=== PATIENT | female | born 1955 | race Caucasian/White ===

== ENCOUNTER 2017-12-31 08:02 | Inpatient (IN) | payer OTHER ==
--- NOTE | 2017-12-31 08:17 | ED PDOC ---
Arrival/HPI - General Chief Complaint: Chest Pain Time Seen by Provider: 12/31/17 08:17 Historian: Patient, Family - History of Present Illness Narrative History of Present Illness (Text): 12/31/17 08:15 pt p/w + constant chest pain since 2am, pt states pain is at most 5-6/10, substernal/radiating to left neck; + lightheadedness/dizziness, + mild sob, no diaphoresis, no fever/chills, no palpitations, no abd pain, + mild nausea, no vomiting, no urinary/bowel changes, no fall/trauma/travel; no sick contact; pt was noted by son to have passed out at ~ 6-630am; pt arrived to ED for further eval/exam pt's without other complaints. PCP: DR Davis pt stopped taking her choles med Time/Duration: Prior to Arrival Symptom Onset: Sudden Symptom Course: Unchanged Quality: Tightness, Cramping Severity Level: 6 Activities at Onset: Rest Context: Home Past Medical History - Provider Review Nursing Documentation Reviewed: Yes - Travel History Have you recently traveled outside [place] w/in the past 3 mons?: No - Past History Past History: No Previous - Infectious Disease Hx of Infectious Diseases: None - Reproductive Menopause: Yes Currently : No Family/Social History - Physician Review Nursing Documentation Reviewed: Yes Family/Social History: No Known Family HX Smoking Status: Never Smoked Hx Alcohol Use: No Hx Substance Use: No Hx Substance Use Treatment: No Allergies/Home Meds Allergies/Adverse Reactions: Allergies No Known Allergies Allergy (Verified 12/31/17 14:16) Home Medications: Home Meds Medication Instructions Recorded Confirmed Bisoprolol [Zebeta] 5 mg PO DAILY 12/31/17 12/31/17 Glimepiride [Amaryl] 1 mg PO DAILY 12/31/17 12/31/17 Rosuvastatin Calcium [Crestor] 20 mg PO DAILY 12/31/17 12/31/17 Review of Systems - Review of Systems Constitutional: Normal Eyes: Normal ENT: Normal Respiratory: SOB Cardiovascular: Chest Pain, Syncope. absent: Palpitations Gastrointestinal: Nausea. absent: Vomiting Genitourinary Female: Normal Musculoskeletal: Normal Skin: Normal Neurological: Dizziness. absent: Headache Endocrine: Normal Hemo/Lymphatic: Normal Psychiatric: Normal Physical Exam Vital Signs Reviewed: Yes Vital Signs Temp Pulse Pulse Resp BP Pulse Ox 12/31/17 09:21 97.9 F 54 L 19 94/58 L 97 12/31/17 08:34 71 18 139/74 97 12/31/17 08:18 71 12/31/17 08:17 98.1 F 71 18 160/67 H 97 Temperature: Afebrile Blood Pressure: Hypertensive Pulse: Regular Respiratory Rate: Normal Appearance: Positive for: Well-Appearing, Uncomfortable, Other (resting in bed, alert/awake, GCS = 15, oriented x 3, mild distress due to pain, cooperative) Pain Distress: Mild Mental Status: Positive for: Alert and Oriented X 3 - Systems Exam Head: Present: Atraumatic, Normocephalic Pupils: Present: PERRL, Other (no nystagmus, no photophobia, sclera anicteric) Extroacular Muscles: Present: EOMI Conjunctiva: Present: Normal Ears: Present: Normal Mouth: Present: Moist Mucous Membranes, Normal Teeth Pharnyx: Present: Normal Nose (External): Present: Atraumatic Nose (Internal): Present: Normal Inspection Neck: Present: Normal Range of Motion, Trachea Midline, Other (no midline tenderness, no nuchal rigidity, no meningeal signs, no step off). No: MIDLINE TENDERNESS Respiratory/Chest: Present: Clear to Auscultation, Good Air Exchange, Other ( CTA b/l, no w/r/r, no accessory muscle use noted, no tachypenia). No: Respiratory Distress, Accessory Muscle Use, Wheezes, Rales, Rhonchi Cardiovascular: Present: Regular Rate and Rhythm, Normal S1, S2. No: Murmurs Abdomen: Present: Normal Bowel Sounds, Other (well nourished female, no focal tenderness, no spencer's sign, no mcburney's point tenderness, no masses/rebound/ guarding/rigidity; no pulsatile masses noted). No: Tenderness, Distention, Peritoneal Signs, Rebound, Guarding Back: Present: Normal Inspection. No: Midline Tenderness Upper Extremity: Present: Normal Inspection, Normal ROM, NORMAL PULSES, Neurovascularly Intact, Capillary Refill < 2s. No: Edema Lower Extremity: Present: Normal Inspection, NORMAL PULSES, Normal ROM, Neurovascularly Intact, Capillary Refill < 2 s. No: Edema, CALF TENDERNESS, Zachary's Sign Neurological: Present: GCS=15, CN II-XII Intact, Speech Normal Skin: Present: Warm, Dry, Normal Color. No: Rashes Psychiatric: Present: Alert, Oriented x 3, Normal Insight, Normal Concentration Medical Decision Making ED Course and Treatment: Impression: chest pain, r/o acs i have consider all the differential diagnosis regarding pt's chief medical complaints/clinical findings, including but are not limited to: chest pain, concern for AMI A/P: chest pain - labs - iv - acs eval - xray - observe - supportive care 12/31/17 08:15 Code Heart was called at 08:15. Awaiting Dr. Zhao 12/31/17 08:[address] hess, who recommends medication for anti- coagulation and agrees to see patient at bedside. 12/31/17 08:25 Case discussed with hospitalist, Dr. Birmingham, at 08:25, who is aware of plan and agrees to see patient at bedside. 12/31/17 08:26 Hospitalist team is currently at bedside and made aware of patient's medical complaints. They agree with admission. 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 pt is currently resting at bedside + mild chest pain remains pt/family are made aware of pt's medical results agrees with admission Re-evaluation Time: 08:30 Reassessment Condition: Improving,but remains with symptoms - Critical Care Critical Care Minutes: 45 minutes Critical Care Time: Excluding Proc Time Narrative Critical Care (Text): 12/31/17 8:58 critical care time: 45min, excluding procedure time, excluding time teaching residents/students/mid-level providers; including initial eval/diagnosis, diagnostic interpretation, re-eval, consultations, final disposition - Lab Interpretations Lab Results: 12/31/17 08:20 12/31/17 08:20 Lab Results 12/31/17 09:30: Blood Type Confirm B POSITIVE 12/31/17 08:20: Hemoglobin A1c 6.3 12/31/17 08:20: Triglycerides 293 H, Cholesterol 250 H, LDL Cholesterol Direct 160 H, HDL Cholesterol 41 12/31/17 08:20: Blood Type B POSITIVE, Antibody Screen Negative, BBK History Checked No verified bt 12/31/17 08:20: Sodium 138, Potassium 3.6, Chloride 102, Carbon Dioxide 25, Anion Gap 15, BUN 10, Creatinine 0.5 L, Est GFR ( Amer) > 60, Est GFR ( Non-Af Amer) > 60, Random Glucose 150 H, Calcium 9.9, Magnesium 1.7, Total Bilirubin 0.9, AST 29, ALT 35, Alkaline Phosphatase 53, Lactate Dehydrogenase 398, Total Creatine Kinase 73, Troponin I 0.09, NT-Pro-B Natriuret Pep 156, Total Protein 7.9, Albumin 4.5, Globulin 3.4, Albumin/Globulin Ratio 1.3 12/31/17 08:20: PT 11.2, INR 0.97, APTT 26.8 12/31/17 08:20: WBC 5.5, RBC 4.82, Hgb 13.0, Hct 39.3, MCV 81.5, MCH 27.0, MCHC 33.1, RDW 13.1, Plt Count 238, MPV 11.2 H, Gran % 57.2, Lymph % (Auto) 34.7, [place] % (Auto) 6.9 H, Eos % (Auto) 0.5 L, Baso % (Auto) 0.7, Gran # 3.12, Lymph # (Auto) 1.9, [place] # (Auto) 0.4, Eos # (Auto) 0.0, Baso # (Auto) 0.04 I have reviewed the lab results: Yes Interpretation: Abnormal lab values (mildly elevated TROP) - RAD Interpretation Narrative RAD Interpretations (Text): 12/31/17 18:53 HISTORY: chest pain COMPARISON: No prior. FINDINGS: LUNGS: No active pulmonary disease. PLEURA: No significant pleural effusion identified, no pneumothorax apparent. CARDIOVASCULAR: Normal. OSSEOUS STRUCTURES: No significant abnormalities. VISUALIZED UPPER ABDOMEN: Normal. OTHER FINDINGS: None. IMPRESSION: No active disease. Radiology Orders: 12/31/17 08:18 CHEST PORTABLE [RAD] Stat Toll Ticket Clerk: Radiologist - EKG Interpretation EKG Interpretation (Text): 12/31/17 0815 EKG1: NSR at 80 bpm, normal axis, no ectopy, + ST elevation noted lead III/F with depressions noted I, L, V2, V4-6, ABNL EKG, ACUTE VT EKG2: NSR at 75 bpm, normal axis, no ectopy, + ST elevation noted lead III/F with depressions noted I, L, V2, V4-6, ABNL EKG, ACUTE VT Interpreted by ED Physician: Yes Type: 12 lead EKG Comparison: No previous EKG avail. - Medication Orders Current Medication Orders: Acetaminophen (Tylenol 325mg Tab) 650 mg PO Q4H PRN PRN Reason: Pain, Mild (1-3) Aspirin (Ecotrin) 81 mg PO DAILY [facility] Last Admin: 12/31/17 10:22 Dose: Atorvastatin Calcium (Lipitor) 40 mg PO DIN [facility] Last Admin: 12/31/17 17:50 Dose: 40 mg Docusate Sodium (Colace) 100 mg PO BID [facility] Last Admin: 12/31/17 17:50 Dose: 100 mg Famotidine (Pepcid) 20 mg PO BID [facility] Last Admin: 12/31/17 17:50 Dose: 20 mg Heparin Sodium/Sodium Chloride (Heparin 38477 Units/250ml 1/2 Normal Saline) 25 ,000 units in 250 mls @ 8.469 mls/hr IV .Q24H MANJIT; 12 UNITS/KG/HR PRN Reason: Protocol Last Admin: 12/31/17 10:11 Dose: Sodium Chloride (Sodium Chloride 0.45%) 1,000 mls @ 100 mls/hr IV .Q10H MANJIT Last Admin: 12/31/17 10:15 Dose: 100 mls/hr eMAR Start Stop Document 12/31/17 10:15 LC (Rec: 12/31/17 10:15 LC [id number]) Intravenous Solution Start Date 12/31/17 Start Time 10:15 Eptifibatide (Integrilin) 75 mg in 100 mls @ 11.293 mls/hr IV .Q8H52M MANJIT; 2 MCG/KG/MIN PRN Reason: Protocol Last Admin: 12/31/17 17:51 Dose: 11.293 mls/hr eMAR Start Stop Document 12/31/17 17:51 LC (Rec: 12/31/17 17:51 [facility]-[id number]) Intravenous Solution Start Date 12/31/17 Start Time 17:51 Insulin Human Regular (Humulin R Low) 0 units SC ACHS MANJIT PRN Reason: Protocol Last Admin: 12/31/17 17:48 Dose: MAR Blood Glucose Document 12/31/17 17:48 LC (Rec: 12/31/17 17:49 LC [id number]) Blood Glucose Finger Stick Blood Glucose (70-120) 104 Subcutaneous Administrations Document 12/31/17 17:48 (Rec: 12/31/17 17:49 [facility]-[id number]) Charges for Administration # of Subcutaneous Administrations 1 Ticagrelor (Brilinta) 90 mg PO BID [facility] Last Admin: 12/31/17 17:50 Dose: 90 mg Discontinued Medications Aspirin (Aspirin) 325 mg PO STAT STA Stop: 12/31/17 08:19 Last Admin: 12/31/17 10:09 Dose: 325 mg Aspirin (Aspirin Chewable) 81 mg PO DAILY MANJIT Atorvastatin Calcium (Lipitor) 40 mg PO DIN MANJIT Clopidogrel Bisulfate (Plavix) 600 mg PO STAT STA Stop: 12/31/17 08:24 Last Admin: 12/31/17 10:15 Dose: 600 mg Heparin Sodium (Porcine) (Heparin) 4,000 units IV ONCE ONE PRN Reason: Protocol Stop: 12/31/17 08:25 Last Admin: 12/31/17 10:16 Dose: 4,000 units eMAR Start Stop Document 12/31/17 10:16 LC (Rec: 12/31/17 10:16 [facility]-[id number]) Intravenous Solution Start Date 12/31/17 Start Time 10:16 Heparin Sodium (Porcine) (Heparin) 5,000 units IV ONCE ONE PRN Reason: Protocol Stop: 12/31/17 08:31 Last Admin: 12/31/17 10:10 Dose: 5,000 units eMAR Start Stop Document 12/31/17 10:10 LC (Rec: 12/31/17 10:10 [facility]-[id number]) Intravenous Solution Start Date 12/31/17 Start Time 10:10 Nitroglycerin (Nitrostat Sl Tab) 0.4 mg SL STAT STA Stop: 12/31/17 08:19 Last Admin: 12/31/17 10:14 Dose: 0.4 mg Pneumococcal Polyvalent Vaccine (Pneumovax 23 Vaccine) 0.5 ml IM .ONCE ONE Stop: 12/31/17 15:17 Last Admin: 12/31/17 17:51 Dose: MAR Immunization Data Document 12/31/17 17:51 (Rec: 12/31/17 17:51 [facility]-[id number]) Immunization Data Vaccine Information Sheet Given No Immunization Registry Document 12/31/17 17:51 LC (Rec: 03/16/18 17:51 [facility]-[id number]) Immunization Registry Consent Date 12/31/17 Disposition/Present on Arrival - Present on Arrival Any Indicators Present on Arrival: No History of DVT/PE: No History of Uncontrolled Diabetes: No Urinary Catheter: No History of Decub. 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
[2017-12-31] MEDS ORDERED: Eptifibatide 20 mg/10mL Inj IVP ONE ×2 (08:20→08:45)
[2017-12-31] MEDS ORDERED: Lidocaine 2% Inj (20ml) ONE (08:22)
[2017-12-31] MEDS ORDERED: Midazolam 2 MG/2 ML VIAL ONE (08:22)
[2017-12-31] MEDS ORDERED: Iodixanol 320 MG/ML 200 ML BOTTLE IV ONE (08:23)
[2017-12-31] MEDS ORDERED: Iohexol 350mgl/ml 50 ML ONE (08:23)
[2017-12-31] MEDS ORDERED: Iodixanol 320 MG/ML 100 ML BOTTLE IV ONE (08:23)
[2017-12-31] MEDS ORDERED: HEPARIN SODIUM/NS 2,000 ML IV ONE (08:24)
[2017-12-31] MEDS ORDERED: Phenylephrine 10 mg/ml Inj ONE (08:25)
[2017-12-31 08:29] LABS: BASO # 0.04 K/mm3 (0.0-2.0); BASO % 0.7 % (0.0-3.0); EOS % 0.5 % (1.5-5.0); GRAN # 3.12 (1.4-6.5); GRAN % 57.2 % (50.0-68.0); LYMPH # 1.9 (1.2-3.4); LYMPH % 34.7 % (22.0-35.0); MEAN CELL VOLUME 81.5 fl (80.0-105.0); MEAN CORPUSCULAR HGB CONC 33.1 g/dl (31.0-37.0); MEAN PLATELET VOLUME 11.2 fl (7.0-11.0); MONO # 0.4 (0.1-0.6); MONO % 6.9 % (1.0-6.0); RBC 4.82 10^6/uL (3.5-6.1); RED CELL DISTRIBUTION WIDTH 13.1 % (11.5-14.5); WHITE BLOOD COUNT 5.5 10^3/ul (4.5-11.0)
[2017-12-31] MEDS ORDERED: Heparin25000 units/250ml 1/2NS 25,000 UNITS/250 ML BAG IV SCH (08:30)
[2017-12-31 08:39] LABS: ALB/GLOB RATIO 1.3 (1.1-1.8); ALBUMIN 4.5 g/dL (3.0-4.8); ALT/SGPT 35 U/L (7-56); AST/SGOT 29 U/L (14-36); BLOOD UREA NITROGEN 10 mg/dL (7-21); CALCIUM 9.9 mg/dL (8.4-10.5); GFR AFRICAN-AMERICAN > 60; GFR NON-AFRICAN AMERICAN > 60
[2017-12-31 08:43] LABS: INR 0.97 (0.93-1.08); PARTIAL THROMBOPLASTIN TIME 26.8 Seconds (25.1-36.5); PROTHROMBIN TIME 11.2 SECONDS (9.4-12.5)
[2017-12-31 08:52] LABS: B-TYPE NATRIURETIC PEPTIDE 156 pg/mL (0-450); TROPONIN I 0.09 ng/mL
[2017-12-31] MEDS ORDERED: Eptifibatide 0.75 mg/ml 75 MG/100 ML BOTTLE IV ONE (08:56)
[2017-12-31] MEDS: Eptifibatide 0.75 mg/ml 75 MG/100 ML BOTTLE IV SCH ×2 (08:57→17:51)
--- NOTE | 2017-12-31 09:20 | CP.PCM.HP ---
<Spring Sarmiento - Last Filed: 12/31/17 10:03> History of Present Illness - History of Present Illness History of Present Illness: H&P for HospitalistAllison PGY2 This is a 62yo Brazilian Latvian speaking female with past medical history of HTN , HLD, DM who came to ED for chest pain x 6hrs. Family ( and son) was at bedside for translation. According to them, Ms. Martinez had chest pain starting at 2am. It was substernal that radiated up and down her chest. She tried to wait to see if it would get better, but it did not so she decided to come to ED when she started to feel short of breath. Patient states she feels "numb all over", but is moving all 4 extremities. She denies having any vision changes, weakness, confusion, fever/chills, nausea/vomiting/diarrhea or dysuria. Patient was found to have EKG changes and Code heart was called. Rapid response team responded immediately and wheeled the patient to the cath lab manager. She had a stent placed in her RCA and was transferred to ICU for further monitoring. Of note, patient did not have her medications with her. She [place] [facility] and did not follow up since. Her medications are given to her by her sons in [place] who are doctors, but she has not been taking her medication lately. Past medical history: HTN, dyslipidemia, DM (borderline) Past surgical history: Denies Home meds: Unknown Allergies: NKDA Social history: Denies EtOH, Drug or alcohol use. Lives with family. Can function independently in all ADLs according to family Family history: HTN, HLD, DM, [place]- no family history of sudden cardiac PMD: Dr. Wendie Braga- has not seen her in 2 yrs Present on Admission - Present on Admission Any Indicators Present on Admission: No Review of Systems - Review of Systems Review of Systems: 12 point ROS reviewed as per HPI Past Patient History - Infectious Disease Hx of Infectious Diseases: None - Past Social History Smoking Status: Never Smoked Alcohol: None Drugs: Denies Home Situation {Lives}: With Family - CARDIAC Hx Cardiac Disorders: Yes Hx Hypercholesterolemia: Yes Hx Hypertension: Yes - ENDOCRINE/METABOLIC Hx Diabetes Mellitus Type 2: Yes - PSYCHIATRIC Hx Substance Use: No - SURGICAL HISTORY Hx Surgeries: No Meds Allergies/Adverse Reactions: Allergies Allergy/AdvReac Type Severity Reaction Status Date / Time No Known Allergies Allergy Verified 12/31/17 14:16 Physical Exam - Constitutional Appears: No Acute Distress - Head Exam Head Exam: ATRAUMATIC, NORMOCEPHALIC - Eye Exam Eye Exam: Normal appearance, PERRL Pupil Exam: NORMAL ACCOMODATION, PERRL - ENT Exam ENT Exam: Mucous Membranes Moist - Neck Exam Neck exam: Positive for: Normal Inspection - Respiratory Exam Respiratory Exam: Clear to Auscultation Bilateral, NORMAL BREATHING PATTERN. absent: Rhonchi, Wheezes - Cardiovascular Exam Cardiovascular Exam: REGULAR RHYTHM, +S1, +S2. absent: Gallop, Rubs, Systolic Murmur - GI/Abdominal Exam GI & Abdominal Exam: Normal Bowel Sounds, Soft. absent: Mass, Rebound, Rigid, Tenderness - Extremities Exam Extremities exam: Positive for: normal inspection. Negative for: calf tenderness, pedal edema - Neurological Exam Neurological exam: Alert, CN II-XII Intact - Psychiatric Exam Psychiatric exam: Normal Affect, Normal Mood - Skin Skin Exam: Dry, Intact, Warm Results - Vital Signs Recent Vital Signs: Last Vital Signs Temp 98.1 F 12/31/17 08:17 Pulse 71 12/31/17 08:34 Resp 18 12/31/17 08:34 BP 139/74 12/31/17 08:34 Pulse Ox 97 12/31/17 08:34 - Labs Result Diagrams: 12/31/17 08:20 12/31/17 08:20 Labs: Laboratory Results - last 24 hr 12/31/17 12/31/17 12/31/17 08:20 08:20 08:20 WBC 5.5 RBC 4.82 Hgb 13.0 Hct 39.3 MCV 81.5 MCH 27.0 MCHC 33.1 RDW 13.1 Plt Count 238 MPV 11.2 H Gran % 57.2 Lymph % (Auto) 34.7 [place] % (Auto) 6.9 H Eos % (Auto) 0.5 L Baso % (Auto) 0.7 Gran # 3.12 Lymph # (Auto) 1.9 [place] # (Auto) 0.4 Eos # (Auto) 0.0 Baso # (Auto) 0.04 PT 11.2 INR 0.97 APTT 26.8 Sodium 138 Potassium 3.6 Chloride 102 Carbon Dioxide 25 Anion Gap 15 BUN 10 Creatinine 0.5 L Est GFR ( Amer) > 60 Est GFR (Non-Af Amer) > 60 Random Glucose 150 H Calcium 9.9 Magnesium 1.7 Total Bilirubin 0.9 AST 29 ALT 35 Alkaline Phosphatase 53 Lactate Dehydrogenase 398 Total Creatine Kinase 73 Troponin I 0.09 NT-Pro-B Natriuret Pep 156 Total Protein 7.9 Albumin 4.5 Globulin 3.4 Albumin/Globulin Ratio 1.3 Blood Type Antibody Screen BBK History Checked 12/31/17 08:20 WBC RBC Hgb Hct MCV MCH MCHC RDW Plt Count MPV Gran % Lymph % (Auto) [place] % (Auto) Eos % (Auto) Baso % (Auto) Gran # Lymph # (Auto) [place] # (Auto) Eos # (Auto) Baso # (Auto) PT INR APTT Sodium Potassium Chloride Carbon Dioxide Anion Gap BUN Creatinine Est GFR ( Amer) Est GFR (Non-Af Amer) Random Glucose Calcium Magnesium Total Bilirubin AST ALT Alkaline Phosphatase Lactate Dehydrogenase Total Creatine Kinase Troponin I NT-Pro-B Natriuret Pep Total Protein Albumin Globulin Albumin/Globulin Ratio Blood Type B POSITIVE Antibody Screen Negative BBK History Checked No verified bt Assessment & Plan - Assessment and Plan (Free Text) Assessment: This is a 62yo Brazilian female with past medical history of HTN, HLD, DM and medication non-compliance who was admitted for acute coronary syndrome. Code heart was called and drug eluting stent was placed in RCA. Plan: 1. STEMI - s/p drug-eluting stent placed in RCA by Dr. Baron - Pt on integrillin drip for 14hrs - Brillinta given as per cardio - ASA, Lipitor - Will trend troponin - Will check Thyroid panel, HgbA1c, Lipid panel - Echo ordered - Cardio consulted - Repeat EKG in am - Tylenol prn pain 2. Hx of HTN - Normotensive on exam - Home BP meds unknown - NS@100 - Will hold off on BP meds for now - If BP increases- consider starting patient on Metoprolol 12.5 BID and Lisinopril 2.5 daily 3. Hx of HLD - Lipitor - Lipid panel pending 4. Hx of DM - Carb consistent/Heart healthy diet - Insulin sliding scale, and Blood glucose ACHS - HgA1c pending Gi ppx: Pepcid DVT ppx: Integrillin drip Dispo: Patient is independent in all ADLs. Will most likely go home upon discharge. Case seen, discussed and reviewed with attending, Dr. Carolina. Allison Sarmiento PGY2 - Date & Time Date: 12/31/17 Time: 10:22 Decision To Admit - Pt Status Changed To: Hospital Disposition Of: Inpatient Admission - Admit Certification Admit to Inpatient:: After my assessment, the patient will require hospitalization for at least two midnights. This is because of the severity of symptoms shown, intensity of services needed, and/or the medical risk in this patient being treated as an outpatient. - . Bed Request Type: Critical Care <Anna Marie Carolina - Last Filed: 12/31/17 18:17> Results - Vital Signs Recent Vital Signs: Last Vital Signs Temp 98.2 F 12/31/17 14:18 Pulse 55 L 12/31/17 14:18 Resp 18 12/31/17 14:18 BP 104/52 L 12/31/17 14:18 Pulse Ox 98 12/31/17 10:28 - Labs Result Diagrams: 12/31/17 08:20 12/31/17 08:20 Labs: Laboratory Results - last 24 hr 12/31/17 12/31/17 11:24 15:22 POC Glucose (mg/dL) 95 104 Attending/Attestation - Attestation I have personally seen and examined this patient.: Yes I have fully participated in the care of the patient.: Yes I have reviewed all pertinent clinical information: Yes Notes (Text): I have seen and examined the patient at bedside. Agree with the above note with the following additions/ exceptions: Briefly this is 62 year with history of Dm- 2, HTN, HLD, non compliance with meds who came for evaluation of chest pain and found to have acute [place]. Patient was taken to cath lab manager and RCA stent was placed. Discussed with Dr Dailey. Will start aspirin, brilinta, integrillin and statins. Will check lipid panel, Hba1c and TSH. Will check echo. Upon discharge patient will follow up with Dr Wendie Carolina
[2017-12-31] MEDS ORDERED: Sodium Chloride 0.45% 1,000 ML IV SCH (09:30)
--- NOTE | 2017-12-31 09:46 | CARD ---
APPROVED REPORT Procedure(s) performed: Left Heart Catheterization Left Ventriculogram Complete Heart Catheterization PTCA with Stenting HISTORY The patient is a 62 year-old female with a history of : diabetes mellitus with oral treatment , hypertension , dyslipidemia , family history of premature CAD . INDICATION The indication(s) include : STEMI (>0 to less than or equal to 6 hours). CASE TECHNIQUE The patient was brought emergently to the Cardiac Catheterization Laboratory in a fasting state and was prepped and draped in a sterile manner. The right femoral groin was infiltrated with 2% Lidocaine subcutaneous anesthesia. A sheath was inserted into the right femoral artery without difficulty. Coronary angiography was performed using coronary diagnostic catheters. The left coronary system was accessed and visualized with a Diagnostic catheter. The right coronary system was accessed and visualized with a Diagnostic catheter. The left ventricle was accessed and visualized with a Diagnostic catheter. Left ventricular/Aortic Valve gradient assessed on pullback. Left ventriculogram was performed in ENGLISH projection. Closure device was deployed with a 6 Fr Angioseal without any complications. Vessel Analysis The patient's coronary anatomy is right dominant. The left main coronary artery is a medium size vessel with intimal irregularities. The left main bifurcates to the left anterior descending and circumflex. The left anterior descending artery is a medium size vessel . There is a 70% stenosis in the proximal segmentin the mid segment. The circumflex artery is a medium size vessel . There is a 30% stenosis in the mid segment. The right coronary artery is a medium size vessel . There is a 100% stenosis in the proximal segment. Left Ventricle The left ventricle is normal in size with normal contractility. The left ventricular ejection fraction is estimated to be 70%. There was no gradient across the aortic valve upon pullback. PCI Technique Lesion Anticoagulation was achieved with Heparin. Percutaneous coronary intervention was performed on the proximal right coronary artery. The lesion stenosis prior to intervention was 100% with MICHELLE 0 flow. A 6 jr4 Guide Catheter was used to engage the rca ostium. A run though Interventional Guidewire was used to cross the lesion. BALLOON DILATION A Balloon catheter 2.5 was inserted and inflated up to 10atm for 15seconds. STENT DEPLOYMENT A drug-eluting stent 2.75 was inserted and inflated up to 18atm for 15seconds. good appotion of stent with MICHELLE III flow Final angiography reveals 0 % stenosis with MICHELLE 3 flow. Conclusion Two vessel CAD. Acute TX of RCA. Normal left ventricular function. Recommendations Smoking Cessation Cardiac Rehabilitation Referral Aggressive Medical Therapy Weight Loss Reduction ProgramMedical Therapy CCU care
--- NOTE | 2017-12-31 09:53 | RAD ---
HISTORY: chest pain COMPARISON: No prior. FINDINGS: LUNGS: No active pulmonary disease. PLEURA: No significant pleural effusion identified, no pneumothorax apparent. CARDIOVASCULAR: Normal. OSSEOUS STRUCTURES: No significant abnormalities. VISUALIZED UPPER ABDOMEN: Normal. OTHER FINDINGS: None. IMPRESSION: No active disease.
--- NOTE | 2017-12-31 10:09 | CPOSTOP ---
DATE: 12/31/2017 POSTOPERATIVE REPORT PHYSICIAN: Alexandro Zhao MD. TYPE OF ANESTHESIA: Moderate sedation. PRE-PROCEDURE DIAGNOSIS: Acute myocardial infarction. PROCEDURE PERFORMED: 1. Left heart catheterization. 2. Coronary angiogram. 3. Left ventriculogram. 4. Percutaneous coronary intervention and stent placement of the proximal RCA. FINDINGS: 1. Left main was normal. LAD had a 70% proximal and 70% mid, circumflex had luminal irregularities 30%. 2. RCA with 100% closed. LV dimension, normal LV function. Stent was placed in the proximal RCA for resolution of the stenosis. FINAL DIAGNOSIS: Two-vessel coronary artery disease. POST PROCEDURE CONDITION: Stable. VASCULAR ACCESS: Right femoral, groin. CLOSURE DEVIDE: Angio-Seal. RADIATION DOSE: 5501.6 cGycm2. FLUORO TIME: 6.8 minutes. Alexandro Zhao MD [id number]
[2017-12-31 10:33] LABS: HDL CHOLESTEROL 41 mg/dL (29-60)
[2017-12-31 10:45] LABS: LDL CHOLESTEROL 160 mg/dL (0-129)
--- NOTE | 2017-12-31 10:51 | CP.PCM.CON ---
<Je Salmeron - Last Filed: 12/31/17 11:04> History of Present Illness - History of Present Illness History of Present Illness: 62yo Nepali speaking female with past medical history of HTN, HLD, DM who came to ED for chest pain x 6hrs. Patient was found to have EKG changes and Code heart was called. Rapid response team responded immediately and wheeled the patient to the labeling specialist. She had a stent placed in her RCA and was transferred to ICU for further monitoring. She was last hospitalized at [facility] for high blood pressure and did not follow up since. Her medications are given to her by her sons in [place] who are doctors, but she has not been taking her medication lately. Past medical history: HTN, dyslipidemia, DM (borderline) Past surgical history: Denies Home meds: Unknown Allergies: NKDA Social history: Denies EtOH, Drug or alcohol use. Lives with family. Can function independently in all ADLs according to family Family history: HTN, HLD, DM, [place]- no family history of sudden cardiac PMD: Dr. Wendie Braga- has not seen her in 2 yrs Review of Systems - Constitutional Constitutional: absent: Anorexia, Chills - EENT Eyes: absent: Blurred Vision, Change in Vision - Cardiovascular Cardiovascular: absent: Chest Pain, Dyspnea - Respiratory Respiratory: absent: Cough, Dyspnea - Gastrointestinal Gastrointestinal: absent: Abdominal Pain, Constipation - Neurological Neurological: absent: Numbness, Paresthesias, Tingling Past Patient History - Infectious Disease Hx of Infectious Diseases: None - Past Social History Smoking Status: Never Smoked Alcohol: None Drugs: Denies Home Situation {Lives}: With Family - CARDIAC Hx Cardiac Disorders: Yes Hx Hypercholesterolemia: Yes Hx Hypertension: Yes - ENDOCRINE/METABOLIC Hx Diabetes Mellitus Type 2: Yes - PSYCHIATRIC Hx Substance Use: No - SURGICAL HISTORY Hx Surgeries: No Meds Allergies/Adverse Reactions: Allergies Allergy/AdvReac Type Severity Reaction Status Date / Time No Known Allergies Allergy Unverified 07/04/14 12:04 - Medications Medications: Current Medications Acetaminophen (Tylenol 325mg Tab) 650 mg PO Q4H PRN PRN Reason: Pain, Mild (1-3) Aspirin (Ecotrin) 81 mg PO DAILY [facility] Last Admin: 12/31/17 10:22 Dose: Not Given Atorvastatin Calcium (Lipitor) 40 mg PO DIN [facility] Docusate Sodium (Colace) 100 mg PO BID [facility] Last Admin: 12/31/17 10:21 Dose: Not Given Famotidine (Pepcid) 20 mg PO BID [facility] Last Admin: 12/31/17 10:14 Dose: 20 mg Heparin Sodium/Sodium Chloride (Heparin 42575 Units/250ml 1/2 Normal Saline) 25 ,000 units in 250 mls @ 8.469 mls/hr IV .Q24H [facility]; 12 UNITS/KG/HR PRN Reason: Protocol Last Admin: 12/31/17 10:11 Dose: Not Given Sodium Chloride (Sodium Chloride 0.45%) 1,000 mls @ 100 mls/hr IV .Q10H [facility] Last Admin: 12/31/17 10:15 Dose: 100 mls/hr Eptifibatide (Integrilin) 75 mg in 100 mls @ 11.293 mls/hr IV .Q8H52M MANJIT; 2 MCG/KG/MIN PRN Reason: Protocol Last Admin: 12/31/17 08:57 Dose: 11.293 mls/hr Insulin Human Regular (Humulin R Low) 0 units SC ACHS [facility] PRN Reason: Protocol Ticagrelor (Brilinta) 90 mg PO BID [facility] Physical Exam - Constitutional Appears: Non-toxic, No Acute Distress - Head Exam Head Exam: ATRAUMATIC, NORMAL INSPECTION, NORMOCEPHALIC - Eye Exam Eye Exam: EOMI, Normal appearance, PERRL - ENT Exam ENT Exam: Mucous Membranes Moist - Neck Exam Neck exam: Positive for: Normal Inspection - Respiratory Exam Respiratory Exam: Clear to Auscultation Bilateral, NORMAL BREATHING PATTERN - Cardiovascular Exam Cardiovascular Exam: REGULAR RHYTHM, +S1, +S2 - GI/Abdominal Exam GI & Abdominal Exam: Normal Bowel Sounds. absent: Tenderness - Extremities Exam Extremities exam: Positive for: pedal pulses present - Neurological Exam Neurological exam: Alert, Oriented x3 Results - Vital Signs Recent Vital Signs: Last Vital Signs Temp 97.8 F 12/31/17 10:04 Pulse 54 L 12/31/17 10:04 Resp 16 12/31/17 10:04 BP 99/64 L 12/31/17 10:04 Pulse Ox 97 12/31/17 10:04 - Labs Result Diagrams: 12/31/17 08:20 12/31/17 08:20 Labs: Laboratory Results - last 24 hr 12/31/17 12/31/17 12/31/17 08:20 08:20 08:20 WBC 5.5 RBC 4.82 Hgb 13.0 Hct 39.3 MCV 81.5 MCH 27.0 MCHC 33.1 RDW 13.1 Plt Count 238 MPV 11.2 H Gran % 57.2 Lymph % (Auto) 34.7 [place] % (Auto) 6.9 H Eos % (Auto) 0.5 L Baso % (Auto) 0.7 Gran # 3.12 Lymph # (Auto) 1.9 [place] # (Auto) 0.4 Eos # (Auto) 0.0 Baso # (Auto) 0.04 PT 11.2 INR 0.97 APTT 26.8 Sodium 138 Potassium 3.6 Chloride 102 Carbon Dioxide 25 Anion Gap 15 BUN 10 Creatinine 0.5 L Est GFR ( Amer) > 60 Est GFR (Non-Af Amer) > 60 Random Glucose 150 H Calcium 9.9 Magnesium 1.7 Total Bilirubin 0.9 AST 29 ALT 35 Alkaline Phosphatase 53 Lactate Dehydrogenase 398 Total Creatine Kinase 73 Troponin I 0.09 NT-Pro-B Natriuret Pep 156 Total Protein 7.9 Albumin 4.5 Globulin 3.4 Albumin/Globulin Ratio 1.3 Triglycerides Cholesterol LDL Cholesterol Direct HDL Cholesterol Blood Type Antibody Screen BBK History Checked 12/31/17 12/31/17 08:20 08:20 WBC RBC Hgb Hct MCV MCH MCHC RDW Plt Count MPV Gran % Lymph % (Auto) [place] % (Auto) Eos % (Auto) Baso % (Auto) Gran # Lymph # (Auto) [place] # (Auto) Eos # (Auto) Baso # (Auto) PT INR APTT Sodium Potassium Chloride Carbon Dioxide Anion Gap BUN Creatinine Est GFR ( Amer) Est GFR (Non-Af Amer) Random Glucose Calcium Magnesium Total Bilirubin AST ALT Alkaline Phosphatase Lactate Dehydrogenase Total Creatine Kinase Troponin I NT-Pro-B Natriuret Pep Total Protein Albumin Globulin Albumin/Globulin Ratio Triglycerides 293 H Cholesterol 250 H LDL Cholesterol Direct 160 H HDL Cholesterol 41 Blood Type B POSITIVE Antibody Screen Negative BBK History Checked No verified bt Assessment & Plan - Assessment and Plan (Free Text) Assessment: This is a 62yo Hungarian female with past medical history of HTN, HLD, DM and medication non-compliance who was admitted for acute coronary syndrome. Code heart was called and drug eluting stent was placed in RCA. Plan: Neurological AAOx3 No deficits Cardiovascular STEMI s/p drug-eluting stent placed in RCA by Dr. Baron Pt on integrillin drip for 14hrs Brillinta given as per cardio ASA, Lipitor troponins Echo ordered Cardio consulted, follow recs Repeat EKG in am Tylenol prn pain Pulmonologic Maintain O2 greater than 90% No acute issues GI HHD Nephro 1/2NS @ 100 Maintain euvolemia Endo Carb consistent/Heart healthy diet Insulin sliding scale, and Blood glucose ACHS Maintain euglycemia Heme H/H stable continue to monitor Prophylaxis GI ppx: Pepcid DVT ppx: Integrillin drip <Miguel A Stanley - Last Filed: 12/31/17 12:21> Meds - Medications Medications: Current Medications Acetaminophen (Tylenol 325mg Tab) 650 mg PO Q4H PRN PRN Reason: Pain, Mild (1-3) Aspirin (Ecotrin) 81 mg PO DAILY [facility] Last Admin: 12/31/17 10:22 Dose: Not Given Atorvastatin Calcium (Lipitor) 40 mg PO DIN [facility] Docusate Sodium (Colace) 100 mg PO BID [facility] Last Admin: 12/31/17 10:21 Dose: Not Given Famotidine (Pepcid) 20 mg PO BID [facility] Last Admin: 12/31/17 10:14 Dose: 20 mg Heparin Sodium/Sodium Chloride (Heparin 17497 Units/250ml 1/2 Normal Saline) 25 ,000 units in 250 mls @ 8.469 mls/hr IV .Q24H [facility]; 12 UNITS/KG/HR PRN Reason: Protocol Last Admin: 12/31/17 10:11 Dose: Not Given Sodium Chloride (Sodium Chloride 0.45%) 1,000 mls @ 100 mls/hr IV .Q10H [facility] Last Admin: 12/31/17 10:15 Dose: 100 mls/hr Eptifibatide (Integrilin) 75 mg in 100 mls @ 11.293 mls/hr IV .Q8H52M [facility]; 2 MCG/KG/MIN PRN Reason: Protocol Last Admin: 12/31/17 08:57 Dose: 11.293 mls/hr Insulin Human Regular (Humulin R Low) 0 units SC ACHS [facility] PRN Reason: Protocol Last Admin: 12/31/17 11:49 Dose: Not Given Ticagrelor (Brilinta) 90 mg PO BID [facility] Last Admin: 12/31/17 11:48 Dose: Not Given Results - Vital Signs Recent Vital Signs: Last Vital Signs Temp 98.2 F 12/31/17 10:28 Pulse 55 L 12/31/17 11:13 Resp 21 12/31/17 10:28 BP 104/52 L 12/31/17 11:13 Pulse Ox 98 12/31/17 10:28 - Labs Result Diagrams: 12/31/17 08:20 12/31/17 08:20 Labs: Laboratory Results - last 24 hr 12/31/17 11:24 POC Glucose (mg/dL) 95 Assessment & Plan - Assessment and Plan (Free Text) Plan: Patient seen and examined on rounds with resident, agree with note with following additions/exceptions: Patient is 62yo female, PMhx of Dm, HTN, HLD, non compliance with meds, presents chest pain, Acute [place], taken to labeling specialist, RCA stent. Afebrile, HD stable , comfortable in NAD, denies CP, SOB. Acute [place] HTN HLD DM Recommend: - supp o2 as needed - panculture, UCx, BCx, Procal - IVF hydration - ASA, Brillinta, Statin, BB - ECHO - Check Lipid Panel, HgbA1C - GI ppx - DVT ppx - Stable, monitor in MICU
[2017-12-31] MEDS: Insulin Reg-LOW-Coverage SC SCH ×2 (11:49→17:48)
[2017-12-31 15:16] VITALS: BMI 27.4
[2017-12-31] MEDS ORDERED: Pneumococcal 23-Valent Vaccine IM ONE (15:16)
[2017-12-31] MEDS ORDERED: Influenza Vaccine 60 mcg/0.5 mL SYR (4YR UP) IM ONE (15:16)
[2017-12-31 18:42] LABS: FREE T4 1.31 ng/dL (0.78-2.19)
[2017-12-31 18:45] LABS: BLOOD UREA NITROGEN 9 mg/dL (7-21); CALCIUM 10.2 mg/dL (8.4-10.5); GFR AFRICAN-AMERICAN > 60; GFR NON-AFRICAN AMERICAN > 60
[2017-12-31 19:48] LABS: CK MB% 8.1 % (2.5-3.0); TROPONIN I 5.85 ng/mL
[2018-01-01 03:57] LABS: CK MB% 6.8 % (2.5-3.0); CK-MB 16.5 ng/mL (0.0-3.6); TROPONIN I 4.65 ng/mL
[2018-01-01] MEDS: Insulin Reg-LOW-Coverage SC SCH ×3 (05:17→12:08)
[2018-01-01 05:54] LABS: BASO # 0.03 K/mm3 (0.0-2.0); BASO % 0.5 % (0.0-3.0); EOS % 0.6 % (1.5-5.0); GRAN # 3.14 (1.4-6.5); GRAN % 50.2 % (50.0-68.0); HEMOGLOBIN 11.9 g/dL (12.0-16.0); LYMPH # 2.7 (1.2-3.4); LYMPH % 43.1 % (22.0-35.0); MEAN CELL VOLUME 81.8 fl (80.0-105.0); MEAN CORPUSCULAR HEMOGLOBIN 26.7 pg (25.0-35.0); MEAN CORPUSCULAR HGB CONC 32.7 g/dl (31.0-37.0); MEAN PLATELET VOLUME 11.3 fl (7.0-11.0); MONO # 0.4 (0.1-0.6); MONO % 5.6 % (1.0-6.0); RBC 4.45 10^6/uL (3.5-6.1); RED CELL DISTRIBUTION WIDTH 13.4 % (11.5-14.5); WHITE BLOOD COUNT 6.3 10^3/ul (4.5-11.0)
[2018-01-01 06:17] LABS: INR 1.03 (0.93-1.08); PARTIAL THROMBOPLASTIN TIME 28.2 Seconds (25.1-36.5); PROTHROMBIN TIME 11.8 SECONDS (9.4-12.5)
[2018-01-01 06:30] LABS: ALB/GLOB RATIO 1.3 (1.1-1.8); ALBUMIN 3.9 g/dL (3.0-4.8); ALT/SGPT 30 U/L (7-56); AST/SGOT 58 U/L (14-36); BLOOD UREA NITROGEN 11 mg/dL (7-21); CALCIUM 9.9 mg/dL (8.4-10.5); GFR AFRICAN-AMERICAN > 60; GFR NON-AFRICAN AMERICAN > 60
--- NOTE | 2018-01-01 09:02 | CARD ---
APPROVED REPORT EXAM: Two-dimensional and M-mode echocardiogram with Doppler and color Doppler. Other Information Quality : AverageRhythm : INDICATION ACS 2D DIMENSIONS Left Atrium (2D)3.1 (1.6-4.0cm)IVSd1.0 (0.7-1.1cm) LVDd4.5 (3.9-5.9cm)PWd1.1 (0.7-1.1cm) LVDs2.8 (2.5-4.0cm)FS (%) 37.6 % LVEF (%)67.0 (>50%) M-Mode DIMENSIONS Aortic Root2.80 (2.2-3.7cm)Aortic Cusp Exc.1.80 (1.5-2.0cm) Aortic Valve AoV Peak Ljpblpys171.0cm/s Mitral Valve MV E Kcfidlgf94.3cm/sMV A Rtdonwkw41.9cm/sE/A ratio1.1 TDI E/Lateral E'0.0E/Medial E'0.0 Tricuspid Valve TR Peak Ytzccbsx074ly/sRAP [id number] Peak Gr.22mmHg [id number] LEFT VENTRICLE The left ventricle is normal size. There is normal left ventricular wall thickness. The left ventricular function is normal. The left ventricular ejection fraction is within the normal range. There is normal LV segmental wall motion. RIGHT VENTRICLE The right ventricle is normal size. ATRIA The left atrium size is normal. The right atrium size is normal. The interatrial septum is intact with no evidence for an atrial septal defect. AORTIC VALVE The aortic valve is normal in structure. MITRAL VALVE The mitral valve is normal in structure. TRICUSPID VALVE The tricuspid valve is normal in structure. There is trace tricuspid regurgitation. PULMONIC VALVE The pulmonic valve is not well visualized. GREAT VESSELS The aortic root is normal in size. PERICARDIAL EFFUSION There is no pericardial effusion. <Conclusion> The left ventricle is normal size. There is normal left ventricular wall thickness. The left ventricular function is normal.
--- NOTE | 2018-01-01 09:54 | CARD ---
APPROVED REPORT EKG Measurement Heart [id number] <Conclusion> Normal sinus rhythm ST elevation 3,F, R/O acute IMI STTW changes c/w ischemia PRWP
--- NOTE | 2018-01-01 10:04 | CARD ---
APPROVED REPORT EKG Measurement Heart [id number] [place] [id number] <Conclusion> Normal sinus rhythm ST elevations 3/F, R/O acute IMI STTW changes c/w ischemia No change
--- NOTE | 2018-01-01 10:32 | CARD ---
APPROVED REPORT EKG Measurement Heart [id number] ID [id number] <Conclusion> Normal sinus rhythm Improved repoarization abnormalities NSSTW changes Small q in 3
--- NOTE | 2018-01-01 10:44 | CARD ---
APPROVED REPORT EKG Measurement Heart [id number] AR [id number] <Conclusion> Normal sinus rhythm NSSTW changes, improved
--- NOTE | 2018-01-01 11:33 | CP.CCUPN ---
<Acosta Plasnecia - Last Filed: 01/01/18 11:34> CCU Subjective - Physician Review Subjective (Free Text): Patient seen and examined at bedside. Patient complaining of pain in right groin at surgical site. Denies chest pain, shortness of breath, nausea, vomiting , diarrhea, fever, chills. CCU Objective - Vital Signs / Intake & Output Vital Signs (Last 4 hours): Vital Signs Temp Pulse 01/01/18 10:00 77 01/01/18 08:00 99.1 F Intake and Output (Last 8hrs): Intake & Output 12/31/17 01/01/18 01/01/18 22:59 06:59 14:59 Intake Total 1320 Output Total 650 Balance 670 Weight 160 lb 1.8 oz Intake: IV 1000 Left Antecubital 1000 Oral 320 Output: Urine 650 Urine, Voided 650 - Physical Exam Head: Positive for: Atraumatic, Normocephalic Conjunctiva: Positive for: Normal Mouth: Positive for: Moist Mucous Membranes Nose (External): Positive for: Atraumatic Nose (Internal): Positive for: Normal Inspection Neck: Negative for: MIDLINE TENDERNESS Respiratory/Chest: Positive for: Clear to Auscultation, Good Air Exchange. Negative for: Respiratory Distress, Accessory Muscle Use, Wheezes, Rales, Rhonchi Cardiovascular: Positive for: Regular Rate and Rhythm, Normal S1, S2. Negative for: Murmurs Abdomen: Positive for: Normal Bowel Sounds. Negative for: Tenderness, Distention, Peritoneal Signs, Rebound, Guarding Back: Positive for: Normal Inspection. Negative for: Midline Tenderness Upper Extremity: Positive for: Normal Inspection, Normal ROM, NORMAL PULSES, Neurovascularly Intact, Capillary Refill < 2s. Negative for: Edema Lower Extremity: Positive for: NORMAL PULSES, Normal ROM, Zachary's Sign, Neurovascularly Intact, Capillary Refill < 2 s, Other (Right groin tenderness. Surgical dressing clean, dry, and intact). Negative for: Edema, CALF TENDERNESS Neurological: Positive for: GCS=15, CN II-XII Intact, Speech Normal Skin: Positive for: Warm, Dry, Normal Color. Negative for: Rashes Psychiatric: Positive for: Alert, Oriented x 3, Normal Insight, Normal Concentration - Medications Active Medications: Active Medications Generic Name Dose Route Start Last Admin Trade Name Freq PRN Reason Stop Dose Admin Acetaminophen 650 mg 12/31/17 09:28 Tylenol 325mg Tab PO Q4H PRN Pain, Mild (1-3) Aspirin 81 mg 12/31/17 10:00 01/01/18 10:08 Ecotrin PO 81 mg DAILY MANJIT Administration Atorvastatin Calcium 40 mg 12/31/17 17:00 12/31/17 17:50 Lipitor PO 40 mg DIN MANJIT Administration Docusate Sodium 100 mg 12/31/17 10:00 01/01/18 10:06 Colace PO 100 mg BID MANJIT Administration Famotidine 20 mg 12/31/17 10:00 01/01/18 10:06 Pepcid PO 20 mg BID MANJIT Administration Heparin Sodium/Sodium Chloride 25,000 units in 250 mls @ 8.469 mls/hr 08:30 12/31/17 10:11 Heparin 72534 Units/250ml 1/2 Normal Saline IV Not Given .Q24H MANJIT Protocol 12 UNITS/KG/HR Sodium Chloride 1,000 mls @ 100 mls/hr 12/31/17 09:30 12/31/17 10:15 Sodium Chloride 0.45% IV 100 mls/hr .Q10H MANJIT Administration Eptifibatide 75 mg in 100 mls @ 11.293 mls/hr 12/31/17 09:30 12/31/17 17:51 Integrilin IV 11.293 mls/hr .Q8H52M MANJIT Administration Protocol 2 MCG/KG/MIN Insulin Human Regular 0 units 12/31/17 11:30 01/01/18 08:02 Humulin R Low SC Not Given ACHS [facility] Protocol Ticagrelor 90 mg 12/31/17 10:00 01/01/18 10:06 Brilinta PO 90 mg BID MANJIT Administration - Patient Studies Lab Studies: Lab Studies 01/01/18 01/01/18 01/01/18 Range/Units 11:16 07:19 05:15 WBC (4.5-11.0) 10^3/ul RBC (3.5-6.1) 10^6/uL Hgb (12.0-16.0) g/dL Hct (36.0-48.0) % MCV (80.0-105.0) fl MCH (25.0-35.0) pg MCHC (31.0-37.0) g/dl RDW (11.5-14.5) % Plt Count (120.0-450.0) 10^3/uL MPV (7.0-11.0) fl Gran % (50.0-68.0) % Lymph % (Auto) (22.0-35.0) % [place] % (Auto) (1.0-6.0) % Eos % (Auto) (1.5-5.0) % Baso % (Auto) (0.0-3.0) % Gran # (1.4-6.5) Lymph # (Auto) (1.2-3.4) [place] # (Auto) (0.1-0.6) Eos # (Auto) (0.0-0.7) Baso # (Auto) (0.0-2.0) K/mm3 PT (9.4-12.5) SECONDS INR (0.93-1.08) APTT (25.1-36.5) Seconds Sodium 139 (132-148) mmol/L Potassium 3.7 (3.6-5.0) mmol/L Chloride 103 (98-107) mmol/L Carbon Dioxide 29 (21-33) mmol/L Anion Gap 12 (10-20) BUN 11 (7-21) mg/dL Creatinine 0.6 L (0.7-1.2) mg/dl Est GFR ( Amer) > 60 Est GFR (Non-Af Amer) > 60 POC Glucose (mg/dL) 85 104 (65-110) mg/dL Random Glucose 114 H (70-110) mg/dL Calcium 9.9 (8.4-10.5) mg/dL Magnesium 1.9 (1.7-2.2) mg/dL Total Bilirubin 1.9 H (0.2-1.3) mg/dL AST 58 H D (14-36) U/L ALT 30 (7-56) U/L Alkaline Phosphatase 49 (38-126) U/L Lactate Dehydrogenase (333-699) U/L Total Creatine Kinase (35-230) U/L CK-MB (CK-2) (0.0-3.6) ng/mL CK-MB (CK-2) % (2.5-3.0) % Troponin I ng/mL Total Protein 6.9 (5.8-8.3) g/dL Albumin 3.9 (3.0-4.8) g/dL Globulin 3.0 gm/dL Albumin/Globulin Ratio 1.3 (1.1-1.8) Free T4 (0.78-2.19) ng/dL TSH 3rd Generation (0.46-4.68) mIU/mL 01/01/18 01/01/18 01/01/18 Range/Units 05:15 05:15 01:40 WBC 6.3 (4.5-11.0) 10^3/ul RBC 4.45 (3.5-6.1) 10^6/uL Hgb 11.9 L (12.0-16.0) g/dL Hct 36.4 (36.0-48.0) % MCV 81.8 (80.0-105.0) fl MCH 26.7 (25.0-35.0) pg MCHC 32.7 (31.0-37.0) g/dl RDW 13.4 (11.5-14.5) % Plt Count 224 (120.0-450.0) 10^3/uL MPV 11.3 H (7.0-11.0) fl Gran % 50.2 (50.0-68.0) % Lymph % (Auto) 43.1 H (22.0-35.0) % [place] % (Auto) 5.6 (1.0-6.0) % Eos % (Auto) 0.6 L (1.5-5.0) % Baso % (Auto) 0.5 (0.0-3.0) % Gran # 3.14 (1.4-6.5) Lymph # (Auto) 2.7 (1.2-3.4) [place] # (Auto) 0.4 (0.1-0.6) Eos # (Auto) 0.0 (0.0-0.7) Baso # (Auto) 0.03 (0.0-2.0) K/mm3 PT 11.8 (9.4-12.5) SECONDS INR 1.03 (0.93-1.08) APTT 28.2 (25.1-36.5) Seconds Sodium (132-148) mmol/L Potassium (3.6-5.0) mmol/L Chloride (98-107) mmol/L Carbon Dioxide (21-33) mmol/L Anion Gap (10-20) BUN (7-21) mg/dL Creatinine (0.7-1.2) mg/dl Est GFR ( Amer) Est GFR (Non-Af Amer) POC Glucose (mg/dL) (65-110) mg/dL Random Glucose (70-110) mg/dL Calcium (8.4-10.5) mg/dL Magnesium (1.7-2.2) mg/dL Total Bilirubin (0.2-1.3) mg/dL AST (14-36) U/L ALT (7-56) U/L Alkaline Phosphatase (38-126) U/L Lactate Dehydrogenase 485 (333-699) U/L Total Creatine Kinase 242 H (35-230) U/L CK-MB (CK-2) 16.5 H (0.0-3.6) ng/mL CK-MB (CK-2) % 6.8 H (2.5-3.0) % Troponin I 4.65 H* D ng/mL Total Protein (5.8-8.3) g/dL Albumin (3.0-4.8) g/dL Globulin gm/dL Albumin/Globulin Ratio (1.1-1.8) Free T4 (0.78-2.19) ng/dL TSH 3rd Generation (0.46-4.68) mIU/mL 12/31/17 12/31/17 12/31/17 Range/Units 22:43 17:55 17:55 WBC (4.5-11.0) 10^3/ul RBC (3.5-6.1) 10^6/uL Hgb (12.0-16.0) g/dL Hct (36.0-48.0) % MCV (80.0-105.0) fl MCH (25.0-35.0) pg MCHC (31.0-37.0) g/dl RDW (11.5-14.5) % Plt Count (120.0-450.0) 10^3/uL MPV (7.0-11.0) fl Gran % (50.0-68.0) % Lymph % (Auto) (22.0-35.0) % [place] % (Auto) (1.0-6.0) % Eos % (Auto) (1.5-5.0) % Baso % (Auto) (0.0-3.0) % Gran # (1.4-6.5) Lymph # (Auto) (1.2-3.4) [place] # (Auto) (0.1-0.6) Eos # (Auto) (0.0-0.7) Baso # (Auto) (0.0-2.0) K/mm3 PT (9.4-12.5) SECONDS INR (0.93-1.08) APTT (25.1-36.5) Seconds Sodium 141 (132-148) mmol/L Potassium 3.7 (3.6-5.0) mmol/L Chloride 102 (98-107) mmol/L Carbon Dioxide 29 (21-33) mmol/L Anion Gap 13 (10-20) BUN 9 (7-21) mg/dL Creatinine 0.6 L (0.7-1.2) mg/dl Est GFR ( Amer) > 60 Est GFR (Non-Af Amer) > 60 POC Glucose (mg/dL) 98 (65-110) mg/dL Random Glucose 98 (70-110) mg/dL Calcium 10.2 (8.4-10.5) mg/dL Magnesium (1.7-2.2) mg/dL Total Bilirubin (0.2-1.3) mg/dL AST (14-36) U/L ALT (7-56) U/L Alkaline Phosphatase (38-126) U/L Lactate Dehydrogenase 397 (333-699) U/L Total Creatine Kinase 285 H (35-230) U/L CK-MB (CK-2) 23.0 H (0.0-3.6) ng/mL CK-MB (CK-2) % 8.1 H (2.5-3.0) % Troponin I 5.85 H* D ng/mL Total Protein (5.8-8.3) g/dL Albumin (3.0-4.8) g/dL Globulin gm/dL Albumin/Globulin Ratio (1.1-1.8) Free T4 1.31 (0.78-2.19) ng/dL TSH 3rd Generation 1.11 (0.46-4.68) mIU/mL 12/31/17 12/31/17 Range/Units 15:22 11:24 WBC (4.5-11.0) 10^3/ul RBC (3.5-6.1) 10^6/uL Hgb (12.0-16.0) g/dL Hct (36.0-48.0) % MCV (80.0-105.0) fl MCH (25.0-35.0) pg MCHC (31.0-37.0) g/dl RDW (11.5-14.5) % Plt Count (120.0-450.0) 10^3/uL MPV (7.0-11.0) fl Gran % (50.0-68.0) % Lymph % (Auto) (22.0-35.0) % [place] % (Auto) (1.0-6.0) % Eos % (Auto) (1.5-5.0) % Baso % (Auto) (0.0-3.0) % Gran # (1.4-6.5) Lymph # (Auto) (1.2-3.4) [place] # (Auto) (0.1-0.6) Eos # (Auto) (0.0-0.7) Baso # (Auto) (0.0-2.0) K/mm3 PT (9.4-12.5) SECONDS INR (0.93-1.08) APTT (25.1-36.5) Seconds Sodium (132-148) mmol/L Potassium (3.6-5.0) mmol/L Chloride (98-107) mmol/L Carbon Dioxide (21-33) mmol/L Anion Gap (10-20) BUN (7-21) mg/dL Creatinine (0.7-1.2) mg/dl Est GFR ( Amer) Est GFR (Non-Af Amer) POC Glucose (mg/dL) 104 95 (65-110) mg/dL Random Glucose (70-110) mg/dL Calcium (8.4-10.5) mg/dL Magnesium (1.7-2.2) mg/dL Total Bilirubin (0.2-1.3) mg/dL AST (14-36) U/L ALT (7-56) U/L Alkaline Phosphatase (38-126) U/L Lactate Dehydrogenase (333-699) U/L Total Creatine Kinase (35-230) U/L CK-MB (CK-2) (0.0-3.6) ng/mL CK-MB (CK-2) % (2.5-3.0) % Troponin I ng/mL Total Protein (5.8-8.3) g/dL Albumin (3.0-4.8) g/dL Globulin gm/dL Albumin/Globulin Ratio (1.1-1.8) Free T4 (0.78-2.19) ng/dL TSH 3rd Generation (0.46-4.68) mIU/mL Laboratory Results - last 24 hr 12/31/17 12/31/17 12/31/17 11:24 15:22 17:55 WBC RBC Hgb Hct MCV MCH MCHC RDW Plt Count MPV Gran % Lymph % (Auto) [place] % (Auto) Eos % (Auto) Baso % (Auto) Gran # Lymph # (Auto) [place] # (Auto) Eos # (Auto) Baso # (Auto) PT INR APTT Sodium Potassium Chloride Carbon Dioxide Anion Gap BUN Creatinine Est GFR ( Amer) Est GFR (Non-Af Amer) POC Glucose (mg/dL) 95 104 Random Glucose Calcium Magnesium Total Bilirubin AST ALT Alkaline Phosphatase Lactate Dehydrogenase Total Creatine Kinase CK-MB (CK-2) CK-MB (CK-2) % Troponin I Total Protein Albumin Globulin Albumin/Globulin Ratio Free T4 1.31 TSH 3rd Generation 1.11 12/31/17 12/31/17 01/01/18 17:55 22:43 01:40 WBC RBC Hgb Hct MCV MCH MCHC RDW Plt Count MPV Gran % Lymph % (Auto) [place] % (Auto) Eos % (Auto) Baso % (Auto) Gran # Lymph # (Auto) [place] # (Auto) Eos # (Auto) Baso # (Auto) PT INR APTT Sodium 141 Potassium 3.7 Chloride 102 Carbon Dioxide 29 Anion Gap 13 BUN 9 Creatinine 0.6 L Est GFR ( Amer) > 60 Est GFR (Non-Af Amer) > 60 POC Glucose (mg/dL) 98 Random Glucose 98 Calcium 10.2 Magnesium Total Bilirubin AST ALT Alkaline Phosphatase Lactate Dehydrogenase 397 485 Total Creatine Kinase 285 H 242 H CK-MB (CK-2) 23.0 H 16.5 H CK-MB (CK-2) % 8.1 H 6.8 H Troponin I 5.85 H* D 4.65 H* D Total Protein Albumin Globulin Albumin/Globulin Ratio Free T4 TSH 3rd Generation 01/01/18 01/01/18 01/01/18 05:15 05:15 05:15 WBC 6.3 RBC 4.45 Hgb 11.9 L Hct 36.4 MCV 81.8 MCH 26.7 MCHC 32.7 RDW 13.4 Plt Count 224 MPV 11.3 H Gran % 50.2 Lymph % (Auto) 43.1 H [place] % (Auto) 5.6 Eos % (Auto) 0.6 L Baso % (Auto) 0.5 Gran # 3.14 Lymph # (Auto) 2.7 [place] # (Auto) 0.4 Eos # (Auto) 0.0 Baso # (Auto) 0.03 PT 11.8 INR 1.03 APTT 28.2 Sodium 139 Potassium 3.7 Chloride 103 Carbon Dioxide 29 Anion Gap 12 BUN 11 Creatinine 0.6 L Est GFR ( Amer) > 60 Est GFR (Non-Af Amer) > 60 POC Glucose (mg/dL) Random Glucose 114 H Calcium 9.9 Magnesium 1.9 Total Bilirubin 1.9 H AST 58 H D ALT 30 Alkaline Phosphatase 49 Lactate Dehydrogenase Total Creatine Kinase CK-MB (CK-2) CK-MB (CK-2) % Troponin I Total Protein 6.9 Albumin 3.9 Globulin 3.0 Albumin/Globulin Ratio 1.3 Free T4 TSH 3rd Generation 01/01/18 01/01/18 07:19 11:16 WBC RBC Hgb Hct MCV MCH MCHC RDW Plt Count MPV Gran % Lymph % (Auto) [place] % (Auto) Eos % (Auto) Baso % (Auto) Gran # Lymph # (Auto) [place] # (Auto) Eos # (Auto) Baso # (Auto) PT INR APTT Sodium Potassium Chloride Carbon Dioxide Anion Gap BUN Creatinine Est GFR ( Amer) Est GFR (Non-Af Amer) POC Glucose (mg/dL) 104 85 Random Glucose Calcium Magnesium Total Bilirubin AST ALT Alkaline Phosphatase Lactate Dehydrogenase Total Creatine Kinase CK-MB (CK-2) CK-MB (CK-2) % Troponin I Total Protein Albumin Globulin Albumin/Globulin Ratio Free T4 TSH 3rd Generation Fingerstick Blood Sugar Results: 104 Assessment/Plan - Assessment and Plan (Free Text) Plan: This is a 62yo [place] female with past medical history of HTN, HLD, DM and medication non-compliance who was admitted for ACS s/p MAXWELL in RCA. Patient stable at this time. Denies chest pain and shortness of breath. Patient will be cleared for transfer to telemetry at this time. Neurological AAOx3 No deficits Cardiovascular STEMI s/p MAXWELL placed in RCA Brillinta ASA, Lipitor Troponins downtrending Echo pending Cardio consulted, follow recs Pulm Maintain O2 greater than 90% No acute issues GI CCD Pepcid Nephro 1/2NS @ 100 Maintain euvolemia Endo CCD ISS Maintain euglycemia Heme Hemoglobin stable Afebrile, no leukocytosis continue to monitor Bhagwandin, PGY-2 <Miguel A Stanley - Last Filed: 01/01/18 11:59> CCU Objective - Vital Signs / Intake & Output Vital Signs (Last 4 hours): Vital Signs Temp Pulse 01/01/18 10:00 77 01/01/18 08:00 99.1 F Intake and Output (Last 8hrs): Intake & Output 12/31/17 01/01/18 01/01/18 22:59 06:59 14:59 Intake Total 1320 Output Total 650 Balance 670 Weight 160 lb 1.8 oz Intake: IV 1000 Left Antecubital 1000 Oral 320 Output: Urine 650 Urine, Voided 650 - Medications Active Medications: Active Medications Generic Name Dose Route Start Last Admin Trade Name Freq PRN Reason Stop Dose Admin Acetaminophen 650 mg 12/31/17 09:28 Tylenol 325mg Tab PO Q4H PRN Pain, Mild (1-3) Aspirin 81 mg 12/31/17 10:00 01/01/18 10:08 Ecotrin PO 81 mg DAILY MANJIT Administration Atorvastatin Calcium 40 mg 12/31/17 17:00 12/31/17 17:50 Lipitor PO 40 mg DIN MANJIT Administration Docusate Sodium 100 mg 12/31/17 10:00 01/01/18 10:06 Colace PO 100 mg BID MANJIT Administration Famotidine 20 mg 12/31/17 10:00 01/01/18 10:06 Pepcid PO 20 mg BID MANJIT Administration Heparin Sodium/Sodium Chloride 25,000 units in 250 mls @ 8.469 mls/hr 08:30 12/31/17 10:11 Heparin 24146 Units/250ml 1/2 Normal Saline IV Not Given .Q24H MANJIT Protocol 12 UNITS/KG/HR Sodium Chloride 1,000 mls @ 100 mls/hr 12/31/17 09:30 12/31/17 10:15 Sodium Chloride 0.45% IV 100 mls/hr .Q10H MANJIT Administration Eptifibatide 75 mg in 100 mls @ 11.293 mls/hr 12/31/17 09:30 12/31/17 17:51 Integrilin IV 11.293 mls/hr .Q8H52M MANJIT Administration Protocol 2 MCG/KG/MIN Insulin Human Regular 0 units 12/31/17 11:30 01/01/18 08:02 Humulin R Low SC Not Given ACHS MANJIT Protocol Ticagrelor 90 mg 12/31/17 10:00 01/01/18 10:06 Brilinta PO 90 mg BID MANJIT Administration - Patient Studies Lab Studies: Lab Studies 01/01/18 01/01/18 01/01/18 Range/Units 11:16 07:19 05:15 WBC (4.5-11.0) 10^3/ul RBC (3.5-6.1) 10^6/uL Hgb (12.0-16.0) g/dL Hct (36.0-48.0) % MCV (80.0-105.0) fl MCH (25.0-35.0) pg MCHC (31.0-37.0) g/dl RDW (11.5-14.5) % Plt Count (120.0-450.0) 10^3/uL MPV (7.0-11.0) fl Gran % (50.0-68.0) % Lymph % (Auto) (22.0-35.0) % [place] % (Auto) (1.0-6.0) % Eos % (Auto) (1.5-5.0) % Baso % (Auto) (0.0-3.0) % Gran # (1.4-6.5) Lymph # (Auto) (1.2-3.4) [place] # (Auto) (0.1-0.6) Eos # (Auto) (0.0-0.7) Baso # (Auto) (0.0-2.0) K/mm3 PT (9.4-12.5) SECONDS INR (0.93-1.08) APTT (25.1-36.5) Seconds Sodium 139 (132-148) mmol/L Potassium 3.7 (3.6-5.0) mmol/L Chloride 103 (98-107) mmol/L Carbon Dioxide 29 (21-33) mmol/L Anion Gap 12 (10-20) BUN 11 (7-21) mg/dL Creatinine 0.6 L (0.7-1.2) mg/dl Est GFR ( Amer) > 60 Est GFR (Non-Af Amer) > 60 POC Glucose (mg/dL) 85 104 (65-110) mg/dL Random Glucose 114 H (70-110) mg/dL Calcium 9.9 (8.4-10.5) mg/dL Magnesium 1.9 (1.7-2.2) mg/dL Total Bilirubin 1.9 H (0.2-1.3) mg/dL AST 58 H D (14-36) U/L ALT 30 (7-56) U/L Alkaline Phosphatase 49 (38-126) U/L Lactate Dehydrogenase (333-699) U/L Total Creatine Kinase (35-230) U/L CK-MB (CK-2) (0.0-3.6) ng/mL CK-MB (CK-2) % (2.5-3.0) % Troponin I ng/mL Total Protein 6.9 (5.8-8.3) g/dL Albumin 3.9 (3.0-4.8) g/dL Globulin 3.0 gm/dL Albumin/Globulin Ratio 1.3 (1.1-1.8) Free T4 (0.78-2.19) ng/dL TSH 3rd Generation (0.46-4.68) mIU/mL 01/01/18 01/01/18 01/01/18 Range/Units 05:15 05:15 01:40 WBC 6.3 (4.5-11.0) 10^3/ul RBC 4.45 (3.5-6.1) 10^6/uL Hgb 11.9 L (12.0-16.0) g/dL Hct 36.4 (36.0-48.0) % MCV 81.8 (80.0-105.0) fl MCH 26.7 (25.0-35.0) pg MCHC 32.7 (31.0-37.0) g/dl RDW 13.4 (11.5-14.5) % Plt Count 224 (120.0-450.0) 10^3/uL MPV 11.3 H (7.0-11.0) fl Gran % 50.2 (50.0-68.0) % Lymph % (Auto) 43.1 H (22.0-35.0) % [place] % (Auto) 5.6 (1.0-6.0) % Eos % (Auto) 0.6 L (1.5-5.0) % Baso % (Auto) 0.5 (0.0-3.0) % Gran # 3.14 (1.4-6.5) Lymph # (Auto) 2.7 (1.2-3.4) [place] # (Auto) 0.4 (0.1-0.6) Eos # (Auto) 0.0 (0.0-0.7) Baso # (Auto) 0.03 (0.0-2.0) K/mm3 PT 11.8 (9.4-12.5) SECONDS INR 1.03 (0.93-1.08) APTT 28.2 (25.1-36.5) Seconds Sodium (132-148) mmol/L Potassium (3.6-5.0) mmol/L Chloride (98-107) mmol/L Carbon Dioxide (21-33) mmol/L Anion Gap (10-20) BUN (7-21) mg/dL Creatinine (0.7-1.2) mg/dl Est GFR ( Amer) Est GFR (Non-Af Amer) POC Glucose (mg/dL) (65-110) mg/dL Random Glucose (70-110) mg/dL Calcium (8.4-10.5) mg/dL Magnesium (1.7-2.2) mg/dL Total Bilirubin (0.2-1.3) mg/dL AST (14-36) U/L ALT (7-56) U/L Alkaline Phosphatase (38-126) U/L Lactate Dehydrogenase 485 (333-699) U/L Total Creatine Kinase 242 H (35-230) U/L CK-MB (CK-2) 16.5 H (0.0-3.6) ng/mL CK-MB (CK-2) % 6.8 H (2.5-3.0) % Troponin I 4.65 H* D ng/mL Total Protein (5.8-8.3) g/dL Albumin (3.0-4.8) g/dL Globulin gm/dL Albumin/Globulin Ratio (1.1-1.8) Free T4 (0.78-2.19) ng/dL TSH 3rd Generation (0.46-4.68) mIU/mL 12/31/17 12/31/17 12/31/17 Range/Units 22:43 17:55 17:55 WBC (4.5-11.0) 10^3/ul RBC (3.5-6.1) 10^6/uL Hgb (12.0-16.0) g/dL Hct (36.0-48.0) % MCV (80.0-105.0) fl MCH (25.0-35.0) pg MCHC (31.0-37.0) g/dl RDW (11.5-14.5) % Plt Count (120.0-450.0) 10^3/uL MPV (7.0-11.0) fl Gran % (50.0-68.0) % Lymph % (Auto) (22.0-35.0) % [place] % (Auto) (1.0-6.0) % Eos % (Auto) (1.5-5.0) % Baso % (Auto) (0.0-3.0) % Gran # (1.4-6.5) Lymph # (Auto) (1.2-3.4) [place] # (Auto) (0.1-0.6) Eos # (Auto) (0.0-0.7) Baso # (Auto) (0.0-2.0) K/mm3 PT (9.4-12.5) SECONDS INR (0.93-1.08) APTT (25.1-36.5) Seconds Sodium 141 (132-148) mmol/L Potassium 3.7 (3.6-5.0) mmol/L Chloride 102 (98-107) mmol/L Carbon Dioxide 29 (21-33) mmol/L Anion Gap 13 (10-20) BUN 9 (7-21) mg/dL Creatinine 0.6 L (0.7-1.2) mg/dl Est GFR ( Amer) > 60 Est GFR (Non-Af Amer) > 60 POC Glucose (mg/dL) 98 (65-110) mg/dL Random Glucose 98 (70-110) mg/dL Calcium 10.2 (8.4-10.5) mg/dL Magnesium (1.7-2.2) mg/dL Total Bilirubin (0.2-1.3) mg/dL AST (14-36) U/L ALT (7-56) U/L Alkaline Phosphatase (38-126) U/L Lactate Dehydrogenase 397 (333-699) U/L Total Creatine Kinase 285 H (35-230) U/L CK-MB (CK-2) 23.0 H (0.0-3.6) ng/mL CK-MB (CK-2) % 8.1 H (2.5-3.0) % Troponin I 5.85 H* D ng/mL Total Protein (5.8-8.3) g/dL Albumin (3.0-4.8) g/dL Globulin gm/dL Albumin/Globulin Ratio (1.1-1.8) Free T4 1.31 (0.78-2.19) ng/dL TSH 3rd Generation 1.11 (0.46-4.68) mIU/mL 12/31/17 Range/Units 15:22 WBC (4.5-11.0) 10^3/ul RBC (3.5-6.1) 10^6/uL Hgb (12.0-16.0) g/dL Hct (36.0-48.0) % MCV (80.0-105.0) fl MCH (25.0-35.0) pg MCHC (31.0-37.0) g/dl RDW (11.5-14.5) % Plt Count (120.0-450.0) 10^3/uL MPV (7.0-11.0) fl Gran % (50.0-68.0) % Lymph % (Auto) (22.0-35.0) % [place] % (Auto) (1.0-6.0) % Eos % (Auto) (1.5-5.0) % Baso % (Auto) (0.0-3.0) % Gran # (1.4-6.5) Lymph # (Auto) (1.2-3.4) [place] # (Auto) (0.1-0.6) Eos # (Auto) (0.0-0.7) Baso # (Auto) (0.0-2.0) K/mm3 PT (9.4-12.5) SECONDS INR (0.93-1.08) APTT (25.1-36.5) Seconds Sodium (132-148) mmol/L Potassium (3.6-5.0) mmol/L Chloride (98-107) mmol/L Carbon Dioxide (21-33) mmol/L Anion Gap (10-20) BUN (7-21) mg/dL Creatinine (0.7-1.2) mg/dl Est GFR ( Amer) Est GFR (Non-Af Amer) POC Glucose (mg/dL) 104 (65-110) mg/dL Random Glucose (70-110) mg/dL Calcium (8.4-10.5) mg/dL Magnesium (1.7-2.2) mg/dL Total Bilirubin (0.2-1.3) mg/dL AST (14-36) U/L ALT (7-56) U/L Alkaline Phosphatase (38-126) U/L Lactate Dehydrogenase (333-699) U/L Total Creatine Kinase (35-230) U/L CK-MB (CK-2) (0.0-3.6) ng/mL CK-MB (CK-2) % (2.5-3.0) % Troponin I ng/mL Total Protein (5.8-8.3) g/dL Albumin (3.0-4.8) g/dL Globulin gm/dL Albumin/Globulin Ratio (1.1-1.8) Free T4 (0.78-2.19) ng/dL TSH 3rd Generation (0.46-4.68) mIU/mL Laboratory Results - last 24 hr 12/31/17 12/31/17 12/31/17 15:22 17:55 17:55 WBC RBC Hgb Hct MCV MCH MCHC RDW Plt Count MPV Gran % Lymph % (Auto) [place] % (Auto) Eos % (Auto) Baso % (Auto) Gran # Lymph # (Auto) [place] # (Auto) Eos # (Auto) Baso # (Auto) PT INR APTT Sodium 141 Potassium 3.7 Chloride 102 Carbon Dioxide 29 Anion Gap 13 BUN 9 Creatinine 0.6 L Est GFR ( Amer) > 60 Est GFR (Non-Af Amer) > 60 POC Glucose (mg/dL) 104 Random Glucose 98 Calcium 10.2 Magnesium Total Bilirubin AST ALT Alkaline Phosphatase Lactate Dehydrogenase 397 Total Creatine Kinase 285 H CK-MB (CK-2) 23.0 H CK-MB (CK-2) % 8.1 H Troponin I 5.85 H* D Total Protein Albumin Globulin Albumin/Globulin Ratio Free T4 1.31 TSH 3rd Generation 1.11 12/31/17 01/01/18 01/01/18 22:43 01:40 05:15 WBC 6.3 RBC 4.45 Hgb 11.9 L Hct 36.4 MCV 81.8 MCH 26.7 MCHC 32.7 RDW 13.4 Plt Count 224 MPV 11.3 H Gran % 50.2 Lymph % (Auto) 43.1 H [place] % (Auto) 5.6 Eos % (Auto) 0.6 L Baso % (Auto) 0.5 Gran # 3.14 Lymph # (Auto) 2.7 [place] # (Auto) 0.4 Eos # (Auto) 0.0 Baso # (Auto) 0.03 PT INR APTT Sodium Potassium Chloride Carbon Dioxide Anion Gap BUN Creatinine Est GFR ( Amer) Est GFR (Non-Af Amer) POC Glucose (mg/dL) 98 Random Glucose Calcium Magnesium Total Bilirubin AST ALT Alkaline Phosphatase Lactate Dehydrogenase 485 Total Creatine Kinase 242 H CK-MB (CK-2) 16.5 H CK-MB (CK-2) % 6.8 H Troponin I 4.65 H* D Total Protein Albumin Globulin Albumin/Globulin Ratio Free T4 TSH 3rd Generation 01/01/18 01/01/18 01/01/18 05:15 05:15 07:19 WBC RBC Hgb Hct MCV MCH MCHC RDW Plt Count MPV Gran % Lymph % (Auto) [place] % (Auto) Eos % (Auto) Baso % (Auto) Gran # Lymph # (Auto) [place] # (Auto) Eos # (Auto) Baso # (Auto) PT 11.8 INR 1.03 APTT 28.2 Sodium 139 Potassium 3.7 Chloride 103 Carbon Dioxide 29 Anion Gap 12 BUN 11 Creatinine 0.6 L Est GFR ( Amer) > 60 Est GFR (Non-Af Amer) > 60 POC Glucose (mg/dL) 104 Random Glucose 114 H Calcium 9.9 Magnesium 1.9 Total Bilirubin 1.9 H AST 58 H D ALT 30 Alkaline Phosphatase 49 Lactate Dehydrogenase Total Creatine Kinase CK-MB (CK-2) CK-MB (CK-2) % Troponin I Total Protein 6.9 Albumin 3.9 Globulin 3.0 Albumin/Globulin Ratio 1.3 Free T4 TSH 3rd Generation 01/01/18 11:16 WBC RBC Hgb Hct MCV MCH MCHC RDW Plt Count MPV Gran % Lymph % (Auto) [place] % (Auto) Eos % (Auto) Baso % (Auto) Gran # Lymph # (Auto) [place] # (Auto) Eos # (Auto) Baso # (Auto) PT INR APTT Sodium Potassium Chloride Carbon Dioxide Anion Gap BUN Creatinine Est GFR ( Amer) Est GFR (Non-Af Amer) POC Glucose (mg/dL) 85 Random Glucose Calcium Magnesium Total Bilirubin AST ALT Alkaline Phosphatase Lactate Dehydrogenase Total Creatine Kinase CK-MB (CK-2) CK-MB (CK-2) % Troponin I Total Protein Albumin Globulin Albumin/Globulin Ratio Free T4 TSH 3rd Generation Assessment/Plan - Assessment and Plan (Free Text) Plan: Patient seen and examined on rounds with resident, agree with note with following additions/exceptions: Patient is 62yo female, PMhx of Dm, HTN, HLD, non compliance with meds, presents chest pain, Acute OH, taken to [facility] yesterday, RCA stent. Currently afebrile, HD stable, comfortable in NAD, denies CP, SOB. Finished intergrillin drip. Stable Acute OH HTN HLD DM Recommend: - supp o2 as needed - panculture, UCx, BCx, Procal - DC IVF - ASA, Brillinta, Statin, BB - DC Integrillin - ECHO - Check Lipid Panel, HgbA1C - GI ppx - DVT ppx - Stable, transfer to telemetry
[2018-01-01 12:08] VITALS: TEMP 98.2
--- NOTE | 2018-01-01 15:12 | CP.PCM.DIS ---
Provider - Provider Date of Admission: 12/31/17 10:58 Attending physician: Anna Marie Carolina MD Primary care physician: Wendie Braga MD Consults: Dr. Luo: Cardiology Time Spent in preparation of Discharge (in minutes): 45 Hospital Course - Lab Results Lab Results: Most Recent Lab Values WBC 6.3 10^3/ul (4.5-11.0) 01/01/18 05:15 RBC 4.45 10^6/uL (3.5-6.1) 01/01/18 05:15 Hgb 11.9 g/dL (12.0-16.0) L 01/01/18 05:15 Hct 36.4 % (36.0-48.0) 01/01/18 05:15 MCV 81.8 fl (80.0-105.0) 01/01/18 05:15 MCH 26.7 pg (25.0-35.0) 01/01/18 05:15 MCHC 32.7 g/dl (31.0-37.0) 01/01/18 05:15 RDW 13.4 % (11.5-14.5) 01/01/18 05:15 Plt Count 224 10^3/uL (120.0-450.0) 01/01/18 05:15 MPV 11.3 fl (7.0-11.0) H 01/01/18 05:15 Gran % 50.2 % (50.0-68.0) 01/01/18 05:15 Lymph % (Auto) 43.1 % (22.0-35.0) H 01/01/18 05:15 Scott % (Auto) 5.6 % (1.0-6.0) 01/01/18 05:15 Eos % (Auto) 0.6 % (1.5-5.0) L 01/01/18 05:15 Baso % (Auto) 0.5 % (0.0-3.0) 01/01/18 05:15 Gran # 3.14 (1.4-6.5) 01/01/18 05:15 Lymph # (Auto) 2.7 (1.2-3.4) 01/01/18 05:15 Scott # (Auto) 0.4 (0.1-0.6) 01/01/18 05:15 Eos # (Auto) 0.0 (0.0-0.7) 01/01/18 05:15 Baso # (Auto) 0.03 K/mm3 (0.0-2.0) 01/01/18 05:15 PT 11.8 SECONDS (9.4-12.5) 01/01/18 05:15 INR 1.03 (0.93-1.08) 01/01/18 05:15 APTT 28.2 Seconds (25.1-36.5) 01/01/18 05:15 Sodium 139 mmol/L (132-148) 01/01/18 05:15 Potassium 3.7 mmol/L (3.6-5.0) 01/01/18 05:15 Chloride 103 mmol/L (98-107) 01/01/18 05:15 Carbon Dioxide 29 mmol/L (21-33) 01/01/18 05:15 Anion Gap 12 (10-20) 01/01/18 05:15 BUN 11 mg/dL (7-21) 01/01/18 05:15 Creatinine 0.6 mg/dl (0.7-1.2) L 01/01/18 05:15 Est GFR ( Amer) > 60 01/01/18 05:15 Est GFR (Non-Af Amer) > 60 01/01/18 05:15 POC Glucose (mg/dL) 85 mg/dL (65-110) 01/01/18 11:16 Random Glucose 114 mg/dL (70-110) H 01/01/18 05:15 Hemoglobin A1c 6.3 % (4.2-6.5) 12/31/17 08:20 Calcium 9.9 mg/dL (8.4-10.5) 01/01/18 05:15 Magnesium 1.9 mg/dL (1.7-2.2) 01/01/18 05:15 Total Bilirubin 1.9 mg/dL (0.2-1.3) H 01/01/18 05:15 AST 58 U/L (14-36) H D 01/01/18 05:15 ALT 30 U/L (7-56) 01/01/18 05:15 Alkaline Phosphatase 49 U/L (38-126) 01/01/18 05:15 Lactate Dehydrogenase 485 U/L (333-699) 01/01/18 01:40 Total Creatine Kinase 242 U/L (35-230) H 01/01/18 01:40 CK-MB (CK-2) 16.5 ng/mL (0.0-3.6) H 01/01/18 01:40 CK-MB (CK-2) % 6.8 % (2.5-3.0) H 01/01/18 01:40 Troponin I 4.65 ng/mL H* D 01/01/18 01:40 NT-Pro-B Natriuret Pep 156 pg/mL (0-450) 12/31/17 08:20 Total Protein 6.9 g/dL (5.8-8.3) 01/01/18 05:15 Albumin 3.9 g/dL (3.0-4.8) 01/01/18 05:15 Globulin 3.0 gm/dL 01/01/18 05:15 Albumin/Globulin Ratio 1.3 (1.1-1.8) 01/01/18 05:15 Triglycerides 293 mg/dL (35-160) H 12/31/17 08:20 Cholesterol 250 mg/dL (130-200) H 12/31/17 08:20 LDL Cholesterol Direct 160 mg/dL (0-129) H 12/31/17 08:20 HDL Cholesterol 41 mg/dL (29-60) 12/31/17 08:20 Free T4 1.31 ng/dL (0.78-2.19) 12/31/17 17:55 TSH 3rd Generation 1.11 mIU/mL (0.46-4.68) 12/31/17 17:55 Blood Type B POSITIVE 12/31/17 08:20 Blood Type Confirm B POSITIVE 12/31/17 09:30 Antibody Screen Negative 12/31/17 08:20 BBK History Checked No verified bt 12/31/17 08:20 - Hospital Course Hospital Course: This is a 62yo [place] Ma[place] speaking female with past medical history of HTN , HLD, DM who came to ED for chest pain x 6hrs. Family ( and son) was at bedside for translation. According to them, Ms. Martinez had chest pain starting at 2am. It was substernal that radiated up and down her chest. She tried to wait to see if it would get better, but it did not so she decided to come to ED when she started to feel short of breath. Patient states she feels "numb all over", but is moving all 4 extremities. She denies having any vision changes, weakness, confusion, fever/chills, nausea/vomiting/diarrhea or dysuria. Patient was found to have EKG changes and Code heart was called. Rapid response team responded immediately and wheeled the patient to the laboratory machinist. She had a stent placed in her RCA and was transferred to ICU for further monitoring. Of note, patient did not have her medications with her. She was last hospitalized at [facility] for high blood pressure and did not follow up since. Her medications are given to her by her sons in [place] who are doctors, but she has not been taking her medication lately. Troponins were elevated, EKG showed STEMI. 12/31: Code heart called 0836 from ED- drug eluting stent in RCA. Patient was d/c'd on ASA, Plavix, Lipitor, a beta mary; MARIUM-I unneeded because not a lateral wall ND, nor was EF < 40%. there was no chest pain, no jump in troponins, nor any incision site bleeding on day of discharge Discharge Exam - Head Exam Head Exam: ATRAUMATIC, NORMAL INSPECTION, NORMOCEPHALIC - Eye Exam Eye Exam: EOMI, Normal appearance, PERRL Pupil Exam: NORMAL ACCOMODATION, PERRL - Respiratory Exam Respiratory Exam: Clear to PA & Lateral, NORMAL BREATHING PATTERN, UNREMARKABLE - Cardiovascular Exam Cardiovascular Exam: REGULAR RHYTHM. absent: Diastolic murmur, Systolic Murmur - GI/Abdominal Exam GI & Abdominal Exam: Normal Bowel Sounds - Neurological Exam Neurological exam: Alert, CN II-XII Intact, Normal Gait, Oriented x3, Reflexes Normal - Psychiatric Exam Psychiatric exam: Normal Affect, Normal Mood - Skin Skin Exam: Dry, Intact, Normal Color, Warm Discharge Plan - Discharge Medications Prescriptions: Aspirin [Aspirin Chewable] 81 mg PO DAILY #30 chew Atorvastatin [Lipitor] 40 mg PO DIN #30 tab Clopidogrel [Plavix] 75 mg PO DAILY #30 tab Metoprolol Tartrate [Lopressor] 25 mg PO BRKDIN #30 tab - Follow Up Plan Condition: STABLE Disposition: HOME/ ROUTINE Instructions: Coronary Heart Disease, Coronary Angioplasty (DC), Heart Attack ( DC), Coronary Heart Disease (DC), Clot Dissolving Drugs for Heart Attack or Stroke, Near Fainting (DC), Chest Pain (DC) Additional Instructions: Please take your aspirin 81 every day as well as please take your plavix everyday to prevent your stent from getting clogged Please take all of your medications as prescribed Please follow up with your primary care doctor in one week If your symptoms return or worsen please return to the ED immediately Referrals: Wendie Braga MD [Primary Care Provider] - Follow up with primary
[2018-01-01 15:38] VITALS: BP 143/69; RESP 18; O2SAT 98
--- NOTE | 2018-01-01 16:13 | PN ---
DATE: SUBJECTIVE: The patient underwent successful PCI proximal right coronary artery. I did review the PCI study. Patient has no chest pain or reported groin bleeding. No . PHYSICAL EXAMINATION: VITAL SIGNS: Blood pressure 126/68, heart rate 64, respirations 18 and temperature 97.8. HEENT: Normocephalic. CHEST: Clear. HEART: S1, S2 regular. EXTREMITIES: No edema. LABORATORY DATA: Today's EKG is unremarkable, revealed sinus rhythm, inferior Q-waves were noted. No ischemic EKG changes or injury pattern. Hemoglobin and hematocrit 11.9 and 36.4, white count and platelet count are within normal limits. SMA-7 is within normal limits except for glucose of 114 and creatinine of 0.6. Troponin on the 12/31 was 5.85 and yesterday was 4.65. ASSESSMENT: Status post inferior wall ST elevation myocardial infarction and percutaneous coronary intervention to the right coronary artery with drug-eluting stent. RECOMMENDATIONS: Patient can be transferred to Telemetry, will be maintained on Brilinta 90 mg twice a day, resume aspirin at 81 mg once a day and Pepcid 20 mg twice a day, Lipitor 40 mg once a day and Lopressor 25 mg twice a day. Palmer Ricardo MD
[2018-01-01 17:01] VITALS: PULSE 82
== END 2018-01-01 17:03 | disposition home or self-care (01) | DRG 853 ==
LOC: ED 08:02 → CATH 08:46 → MERGE 08:46 → CCU 10:58 → 2RNO 01-01 14:05
PROVIDERS: ADMIT Internal Medicine Cardiovascular Disease; ATTEND Hospitalist
PROC: 027034Z Dilation of Coronary Artery, One Artery with Drug-eluting Intraluminal Device, Percutaneous Approach (ICD-10-PCS; principal; 2017-12-31)
PROC: 4A023N7 Measurement of Cardiac Sampling and Pressure, Left Heart, Percutaneous Approach (ICD-10-PCS; 2017-12-31)
PROC: B2111ZZ Fluoroscopy of Multiple Coronary Arteries using Low Osmolar Contrast (ICD-10-PCS; 2017-12-31)
PROC: B2151ZZ Fluoroscopy of Left Heart using Low Osmolar Contrast (ICD-10-PCS; 2017-12-31)
PROC: 3E033PZ Introduction of Platelet Inhibitor into Peripheral Vein, Percutaneous Approach (ICD-10-PCS; 2017-12-31)
DX: I21.11 ST elevation (STEMI) myocardial infarction involving right coronary artery (principal); E11.9 Type 2 diabetes mellitus without complications; E78.00 Pure hypercholesterolemia, unspecified; E78.5 Hyperlipidemia, unspecified; I10 Essential (primary) hypertension; I25.10 Atherosclerotic heart disease of native coronary artery without angina pectoris; Z82.49 Family history of ischemic heart disease and other diseases of the circulatory system; R40.2412 Glasgow coma scale score 13-15, at arrival to emergency department; Z91.14 Patient's other noncompliance with medication regimen